=== PATIENT | male | born 1965 | race Caucasian/White ===

== ENCOUNTER 2020-12-31 08:30 | Observation (INO) | payer OTHER, SELFPAY ==
[2020-12-31] VITALS (18 sets, daily range): BP systolic 109–136; BP diastolic 59–89; PULSE 50–75; RESP 12–33; TEMP 36.4–36.8; O2SAT 95–100; BMI 22.8; BMI 22.1
--- NOTE | 2020-12-31 08:41 | DI.RAD.S_ITS ---
PROCEDURE: XR CHEST 1V INDICATIONS: chest pain TECHNIQUE: One view of the chest was acquired. COMPARISON: None. FINDINGS: Surgical changes and devices: None. Lungs and pleura: Lungs are clear. No pleural effusions or pneumothorax. Mediastinum: Mediastinal contours appear normal. Heart size is normal. Bones and chest wall: No suspicious bony lesions. Overlying soft tissues appear unremarkable. IMPRESSION: No acute cardiopulmonary abnormality Dictated by: Laurent Simpson M.D. on 12/31/2020 at 9:21 Approved by: Laurent Simpson M.D. on 12/31/2020 at 9:21
[2020-12-31 08:55] LABS: Add Manual Diff / Slide Review NO; Basophils Absolute Auto 0 /uL (0-100); Basophils Percent Auto 0.6 % (0-2); Eosinophils Absolute Auto 0 /uL (0-450); Eosinophils Percent Auto 0.3 % (2-4); Hematocrit 48.2 % (41-53); Hemoglobin 16.3 g/dL (13.5-17.5); Lymphocytes Absolute Auto 1600 /uL (1100-4500); Lymphocytes Percent Auto 21.5 % (25-40); Mean Corpuscular HGB Conc 33.9 % (30-36); Mean Corpuscular Hemoglobin 35.6 PG (26-34); Mean Corpuscular Volume 105.1 fL (80-100); Monocytes Absolute Auto 700 /uL (0-900); Monocytes Percent Auto 9.2 % (3-14); Neutrophils Absolute Auto 5100 /uL (1500-7000); Neutrophils Percent Auto 68.4 % (50-75); Platelet Count 218 X10^3/uL (150-400); Red Blood Cell Count 4.59 X10^6/uL (4.5-5.9); Red Cell Distribution Width 12.4 % (11.6-14.8); White Blood Cell Count 7.5 X10^3/uL (4.5-11.0)
--- NOTE | 2020-12-31 09:01 | ED_ITS ---
HPI - Extremity Problem General Chief complaint: Extremity Problem,Nontraumatic Stated complaint: PAIN IN RIGHT SHOULDER Time Seen by Provider: 12/31/20 08:30 Source: patient and family Mode of arrival: Ambulatory Limitations: no limitations History of Present Illness HPI Narrative: 55-year-old male smoker and frequent drinker presents with a chief complaint of right shoulder pain with radiation into his right arm for the past day and a half. He denies any injury or overuse. He cannot worsen his pain with range of motion and denies any obvious provocation. He denies any dizziness, weakness or lightheadedness but does state over the past week or 2 he has had increasing fatigue and shortness of breath with exertion. He denies recent travel, history of blood clot or history of any known cancer. He states he did have a stress test many years ago that he thinks went okay but they did mention his EKG suggested he had a prior ?event?. He states his PCP is in [facility] Medications Medication Instructions Recorded Confirmed B-complex with vitamin C 1 cap PO DAILY 12/31/20 12/31/20 citalopram 40 mg tablet 40 mg PO DAILY 12/31/20 12/31/20 valacyclovir 1 gram tablet 1,000 mg PO DAILY 12/31/20 12/31/20 Allergies Allergy/AdvReac Type Severity Reaction Status Date / Time No Known Drug Allergies Allergy Unverified 12/31/20 07:20 Review of Systems Constitutional Constitutional: Denies chills, Denies fatigue, Denies fever(s), Denies frequent falls, Denies lethargy and Denies weakness Eyes Eyes: Denies change in vision, Denies eye discharge, Denies irritation and Denies loss of vision ENT Ears, Nose, Mouth, and Throat: Denies change in voice, Denies dizziness, Denies neck pain, Denies sore throat and Denies throat swelling Cardiovascular Cardiovascular: Denies chest pain, Denies irregular heart rhythm, Denies lig htheadedness, Denies palpitations, Denies dyspnea, Denies dyspnea on exertion and Denies orthopnea Respiratory Respiratory: Denies cough, Denies dyspnea, Denies dyspnea on exertion and Denies wheezing Gastrointestinal Gastrointestinal: Denies abdominal pain, Denies change in bowel habits, Denies diarrhea, Denies nausea and Denies vomiting Musculoskeletal Musculoskeletal: Denies neck pain, Denies numbness and Reports radiating pain into limb Comments: Shoulder pain Integumentary/Breasts Skin/Breast: Denies pruritus, Denies erythema, Denies rash and Denies wounds Neurologic Neurologic: Denies behavioral changes, Denies confusion, Denies dizziness, Denies frequent falls, Denies loss of vision, Denies numbness and Denies weakness Psychiatric Psychiatric: Denies anxiety, Denies behavioral changes, Denies confusion, Denies depression, Denies homicidal ideation and Denies suicidal ideation Endocrine Endocrine: Denies fatigue, Denies flushing and Denies palpitations Hematologic/Lymphatic Hematologic/Lymphatic: Denies easy bruising Allergic/Immunologic Allergic/Immunologic: Denies urticaria, Denies throat swelling and Denies wheezing Patient History Medical History Alcohol use Anxiety Tobacco use Social History Smoking Status: Current every day smoker alcohol intake: current Smoking Status: Current every day smoker Exam Narrative Exam Narrative: GENERAL: [55] year old patient appears stated age. Well-nourished, well-developed patient, in mild distress. HEAD: Atraumatic. Normocephalic. EYES: Pupils equal round and reactive. Extraocular motions intact. No scleral icterus. No injection or drainage. ENT: Nose without bleeding, purulent drainage. Throat without erythema, tonsillar hypertrophy or exudate. Airway patent. NECK: Trachea midline. Non tender. No increased shoulder and arm symptoms with axial loading or palpation of right side of neck CARDIOVASCULAR: Regular rate and rhythm without murmurs, gallops, or rubs. RESPIRATORY: Clear to auscultation. Breath sounds equal bilaterally. No wheezes, rales, or rhonchi. GASTROINTESTINAL: Abdomen soft, non-tender, nondistended. EXTREMITIES: No edema or joint tenderness. Shoulder pain not reproducible BACK: Nontender without deformity or crepitance. No flank tenderness. NEURO: AOx3. SKIN: No rash or erythema of visible areas Initial Vital Signs Initial Vital Signs: Vital Signs Temperature 97.5 F L 12/31/20 08:38 Pulse Rate 74 12/31/20 08:38 Respiratory Rate 16 12/31/20 08:38 Blood Pressure 136/86 12/31/20 08:38 Pulse Oximetry 97 12/31/20 08:38 Scores HEART Score Heart Score history: Moderately Suspicious Heart Score EKG: Non-Specific repolarization disturbance Heart Score Age: 45-64 years old Heart Score risk factors: 1-2 risk factors Heart Score troponin: < or = to normal limit Heart Score Total: 4 Course Orders Ordered: ED Orders 12/31/20 09:13 EKG-12 Lead Stat 12/31/20 10:38 Troponin I Stat 12/31/20 12:09 COVID19 Stat 12/31/20 16:44 Troponin I Urgent Acetaminophen (Acetaminophen 325 Mg Tablet) 650 mg PO Q6HR PRN PRN Reason: Fever/Mild Pain (1-3) Citalopram Hydrobromide (Citalopram 10 Mg Tablet) 40 mg PO DAILY BILLY Diazepam (Diazepam 10 Mg/2 Ml Syringe) 5 mg IV Q6HR PRN PRN Reason: Muscle Spasm Last Admin: 12/31/20 17:30 Dose: 5 mg Documented by: BRIAN Folic Acid (Folic Acid 1 Mg Tablet) 1 mg PO DAILY [facility] Hydromorphone HCl (Hydromorphone 0.5 Mg Inj) 0.5 mg IV Q3H PRN PRN Reason: Pain, Moderate (4-6) Last Admin: 12/31/20 16:00 Dose: 0.5 mg Documented by: BRIAN Ketorolac Tromethamine (Ketorolac 30 Mg/Ml Vial) 15 mg IV Q8H PRN PRN Reason: pain Stop: 01/05/21 15:26 Last Admin: 12/31/20 18:03 Dose: 15 mg Documented by: BRIAN Lorazepam (Lorazepam 1 Mg Tablet) 0 mg PO [id number] PRN; Protocol PRN Reason: Alcohol Withdrawal Multivitamins (Multivitamin 1 Tablet) 1 tab PO DAILY [facility] Naloxone HCl (Naloxone 0.4 Mg/Ml Vial) 0.2 mg IV Q2MIN PRN PRN Reason: Opiate Reversal Nitroglycerin (Nitroglycerin 0.4 Mg Sl Tab) 0.4 mg SL [id number] PRN PRN Reason: Chest Pain Last Admin: 12/31/20 11:21 Dose: 0.4 mg Documented by: LACI Thiamine HCl (Thiamine 100 Mg Tablet) 100 mg PO DAILY BILLY Stop: 01/04/21 09:01 Valacyclovir HCl (Valacyclovir 500 Mg Tablet) 1,000 mg PO DAILY BILLY Discontinued Medications Aspirin (Aspirin 81 Mg Chew Tab) 324 mg PO NOW ONE Stop: 12/31/20 11:59 Last Admin: 12/31/20 12:04 Dose: 324 mg Documented by: KIRA Ketorolac Tromethamine (Ketorolac 60 Mg/2 Ml Vial) 15 mg IV NOW ONE Stop: 12/31/20 09:14 Last Admin: 12/31/20 09:32 Dose: 15 mg Documented by: LACI Consultations Consultation #1: Discussed with on-call Cardiology, given patient's risk factors, exertional fatigue and shortness of breath over the past 2 weeks, heart score of 4, they recommend admission with stress testing and ECHO. Consultation #2: Hospitalist happy to accept Vital Signs Vital signs: Vital Signs - 8 hr 12/31/20 10:35 12/31/20 10:37 12/31/20 11:00 Pulse Rate 56 L 56 L Respiratory Rate 12 14 20 Blood Pressure 134/86 Pulse Oximetry 99 100 95 12/31/20 11:21 12/31/20 11:26 12/31/20 11:30 Pulse Rate 66 58 L Respiratory Rate 24 18 Blood Pressure 134/74 128/59 L Pulse Oximetry 95 95 12/31/20 12:00 12/31/20 12:06 Pulse Rate 55 L 68 Respiratory Rate 33 H 26 H Blood Pressure 118/74 Pulse Oximetry 98 99 MDM - Extremity (Nontraumatic) Lab Data Result diagrams: 12/31/20 08:42 12/31/20 08:42 Labs: Lab Results 12/31/20 12/31/20 12/31/20 Range/Units 08:42 08:42 08:42 WBC 7.5 (4.5-11.0) X10^3/uL RBC 4.59 (4.5-5.9) X10^6/uL Hgb 16.3 (13.5-17.5) g/dL Hct 48.2 (41-53) % MCV 105.1 H (80-100) fL MCH 35.6 H (26-34) PG MCHC 33.9 (30-36) % RDW 12.4 (11.6-14.8) % Plt Count 218 (150-400) X10^3/uL Neut % (Auto) 68.4 (50-75) % Lymph % (Auto) 21.5 L (25-40) % Lasalle % (Auto) 9.2 (3-14) % Eos % (Auto) 0.3 L (2-4) % Baso % (Auto) 0.6 (0-2) % Neut # (Auto) 5100 (2371-9935) /uL Lymph # (Auto) 1600 (0204-4217) /uL Lasalle # (Auto) 700 (0-900) /uL Eos # (Auto) 0 (0-450) /uL Baso # (Auto) 0 (0-100) /uL ESR (0-15) MM/HR PT 11.5 (10.1-12.7) SECONDS INR 1.0 (0.9-1.3) APTT 37 H (26.4-36.2) SECONDS Sodium 135 L (137-145) mmol/L Potassium 4.2 (3.4-5.1) mmol/L Chloride 102 (98-107) mmol/L Carbon Dioxide 28 (22-32) mmol/L BUN 11 (9-20) mg/dL Creatinine 0.58 L (0.66-1.25) mg/dL Estimated GFR > 60.0 (>60) mL/min BUN/Creatinine Ratio 19.0 (6-22) Glucose 126 H (70-100) mg/dL Calcium 9.2 (8.4-10.2) mg/dL Total Bilirubin 0.6 (0.2-1.3) mg/dL AST 26 (17-59) IU/L ALT 14 (<50) IU/L Alkaline Phosphatase 61 (38-126) U/L Total Creatine Kinase 81 (55-170) U/L CK-MB (CK-2) TNP CK-MB (CK-2) Rel Index TNP Troponin I < 0.012 (0.01-0.034) ng/mL C-Reactive Protein (<1.0) mg/dL Total Protein 7.5 (6.3-8.2) g/dL Albumin 4.7 (3.5-5.0) g/dL Globulin 2.8 (1.7-4.1) g/dL Albumin/Globulin Ratio 1.7 (1.0-2.8) Lipase 68 (23-300) U/L SARS-CoV-2 (PCR) (Negative) 12/31/20 12/31/20 12/31/20 Range/Units 08:42 08:42 10:38 WBC (4.5-11.0) X10^3/uL RBC (4.5-5.9) X10^6/uL Hgb (13.5-17.5) g/dL Hct (41-53) % MCV (80-100) fL MCH (26-34) PG MCHC (30-36) % RDW (11.6-14.8) % Plt Count (150-400) X10^3/uL Neut % (Auto) (50-75) % Lymph % (Auto) (25-40) % Lasalle % (Auto) (3-14) % Eos % (Auto) (2-4) % Baso % (Auto) (0-2) % Neut # (Auto) (1067-8315) /uL Lymph # (Auto) (7794-6957) /uL Lasalle # (Auto) (0-900) /uL Eos # (Auto) (0-450) /uL Baso # (Auto) (0-100) /uL ESR 1 (0-15) MM/HR PT (10.1-12.7) SECONDS INR (0.9-1.3) APTT (26.4-36.2) SECONDS Sodium (137-145) mmol/L Potassium (3.4-5.1) mmol/L Chloride (98-107) mmol/L Carbon Dioxide (22-32) mmol/L BUN (9-20) mg/dL Creatinine (0.66-1.25) mg/dL Estimated GFR (>60) mL/min BUN/Creatinine Ratio (6-22) Glucose (70-100) mg/dL Calcium (8.4-10.2) mg/dL Total Bilirubin (0.2-1.3) mg/dL AST (17-59) IU/L ALT (<50) IU/L Alkaline Phosphatase (38-126) U/L Total Creatine Kinase (55-170) U/L CK-MB (CK-2) CK-MB (CK-2) Rel Index Troponin I < 0.012 (0.01-0.034) ng/mL C-Reactive Protein < 0.5 (<1.0) mg/dL Total Protein (6.3-8.2) g/dL Albumin (3.5-5.0) g/dL Globulin (1.7-4.1) g/dL Albumin/Globulin Ratio (1.0-2.8) Lipase (23-300) U/L SARS-CoV-2 (PCR) (Negative) 12/31/20 Range/Units 12:09 WBC (4.5-11.0) X10^3/uL RBC (4.5-5.9) X10^6/uL Hgb (13.5-17.5) g/dL Hct (41-53) % MCV (80-100) fL MCH (26-34) PG MCHC (30-36) % RDW (11.6-14.8) % Plt Count (150-400) X10^3/uL Neut % (Auto) (50-75) % Lymph % (Auto) (25-40) % Lasalle % (Auto) (3-14) % Eos % (Auto) (2-4) % Baso % (Auto) (0-2) % Neut # (Auto) (4488-3882) /uL Lymph # (Auto) (7687-3463) /uL Lasalle # (Auto) (0-900) /uL Eos # (Auto) (0-450) /uL Baso # (Auto) (0-100) /uL ESR (0-15) MM/HR PT (10.1-12.7) SECONDS INR (0.9-1.3) APTT (26.4-36.2) SECONDS Sodium (137-145) mmol/L Potassium (3.4-5.1) mmol/L Chloride (98-107) mmol/L Carbon Dioxide (22-32) mmol/L BUN (9-20) mg/dL Creatinine (0.66-1.25) mg/dL Estimated GFR (>60) mL/min BUN/Creatinine Ratio (6-22) Glucose (70-100) mg/dL Calcium (8.4-10.2) mg/dL Total Bilirubin (0.2-1.3) mg/dL AST (17-59) IU/L ALT (<50) IU/L Alkaline Phosphatase (38-126) U/L Total Creatine Kinase (55-170) U/L CK-MB (CK-2) CK-MB (CK-2) Rel Index Troponin I (0.01-0.034) ng/mL C-Reactive Protein (<1.0) mg/dL Total Protein (6.3-8.2) g/dL Albumin (3.5-5.0) g/dL Globulin (1.7-4.1) g/dL Albumin/Globulin Ratio (1.0-2.8) Lipase (23-300) U/L SARS-CoV-2 (PCR) Negative (Negative) MDM Narrative Medical decision making narrative: Multiple etiologies including orthopedic or musculoskeletal considered but thought unlikely given lack of reproducibility, overuse or injury. Referred pain from abdominal source considered but thought unlikely given lack of reproducible abdominal pain, nausea, vomiting or other lab abnormalities. Cervical radiculopathy considered but thought unlikely given lack of reproducibility, change with axial loading. Cardiac etiology considered and will need to be ruled out despite negative troponin and nonischemic EKG. Discharge Plan Departure Patient Disposition: Admitted as Observation Clinical Impression: Chest pain Qualifiers: Chest pain type: unspecified Qualified Code(s): R07.9 - Chest pain, unspecified Admit Date/Time: 12/31/20 12:18 Admit Provider: Gordon Owen
[2020-12-31 09:02] LABS: Prothrombin Time 11.5 SECONDS (10.1-12.7)
[2020-12-31 09:05] LABS: PTT Partial Thromboplastin Tim 37 SECONDS (26.4-36.2)
[2020-12-31 09:06] LABS: Alanine Aminotransferase 14 IU/L (<50); Albumin 4.7 g/dL (3.5-5.0); Albumin Globulin Ratio 1.7 (1.0-2.8); Alkaline Phosphatase 61 U/L (38-126); Aspartate Aminotransferase 26 IU/L (17-59); Bilirubin Total 0.6 mg/dL (0.2-1.3); Blood Urea Nitrogen 11 mg/dL (9-20); Calcium 9.2 mg/dL (8.4-10.2); Carbon Dioxide 28 mmol/L (22-32); Chloride 102 mmol/L (98-107); Creatine Kinase 81 U/L (55-170); Estimated Glomerular Filt Rate > 60.0 mL/min (>60); Globulin 2.8 g/dL (1.7-4.1); Glucose 126 mg/dL (70-100); HEMOLYSIS 20 (0-50); Lipase 68 U/L (23-300); Potassium 4.2 mmol/L (3.4-5.1); Sodium 135 mmol/L (137-145); Total Protein 7.5 g/dL (6.3-8.2)
[2020-12-31 09:18] LABS: Troponin I < 0.012 ng/mL (0.01-0.034)
[2020-12-31] MEDS: KETOROLAC 60 MG/2 ML VIAL 15 MG IV (09:32)
[2020-12-31 09:36] LABS: Erythrocyte Sedimentation Rate 1 MM/HR (0-15)
[2020-12-31 09:38] LABS: C-Reactive Protein Quant < 0.5 mg/dL (<1.0)
[2020-12-31 11:06] LABS: Troponin I < 0.012 ng/mL (0.01-0.034)
[2020-12-31] MEDS: NITROGLYCERIN 0.4 MG SL TAB SL (11:21)
[2020-12-31] MEDS: ASPIRIN 81 MG CHEW TAB 324 MG PO (12:04)
[2020-12-31 12:32] LABS: COVID19 -Nasal RAPID Negative (Negative)
--- NOTE | 2020-12-31 14:51 | DI.ECHO.S_ITS ---
[facility]---------+ [facility] +---------+ : : [address] : : : : [id number] : : : : Phone: [phone]---------+ Echocardiogram Report + + :Name: DEIDRE RODRIGUEZ Study Date: 01/01/2021 Height: 68 in : :[facility] ReadingLocation: Weight: 145 lb : : Gender: Male BSA: 1.8 m2 : :: 1965 Age: 55 yrs BP: 114/78 mmHg: :Reason For Study: CARDIAC PAIN : :Ordering Physician: SANJAY, : :RAAD GOTTI Performed By: Ju Armando : :Referring: RAAD GRACE : + + Interpretation Summary Sinus bradycardia; heart rate is 45-68 bpm. Normal LV size, wall thickness, wall motion and LV systolic function. EF is 60-65%. Mild LA enlargement; otherwise normal chamber sizes. No significant valvular abnormalities. No prior study available for comparison. Procedure: A two-dimensional transthoracic echocardiogram with color flow and Doppler was performed. The study quality was technically adequate. There is no prior echocardiogram noted for this patient. The patient was in sinus bradycardia with heart rates between 45-68 bpm during the exam. Left Ventricle: The left ventricle is normal in size and wall thickness. The ejection fraction is estimated to be 60-65%. Right Ventricle: The right ventricle is normal in size and function. Atria: The left atrium is mildly dilated. Right atrial size is normal. There is no Doppler evidence for an interatrial shunt. Mitral Valve: The mitral valve is normal in structure and function. There is mild mitral annular calcification. There is trace mitral regurgitation. Aortic Valve: The aortic valve is trileaflet. The aortic valve opens well. There is no aortic valve stenosis. No aortic regurgitation is present. Tricuspid Valve: The tricuspid valve is normal in structure and function. There is trace tricuspid regurgitation. Pulmonary artery pressures cannot be estimated because of the lack of a measurable TR jet velocity but the IVC suggests a CVP of around 3 mmHg. Pulmonic Valve: The pulmonic valve leaflets are thin and pliable; valve motion is normal. There is no pulmonic valvular regurgitation. Great Vessels: The aortic root is normal size. The ascending aorta is normal in size. The IVC is of normal diameter and collapses greater than 50% with a sniff. This suggests a low right atrial pressure of 3 mm Hg. Pericardium/ Pleura There is no pericardial effusion. There is no pleural effusion. MMode/2D Measurements & Calculations LVIDd: 5.3 cm LVOT diam: 2.1 cm LVIDs: 3.5 cm Ao root diam: 3.5 cm FS: 33.4 % asc Aorta Diam: 3.4 cm EPSS: 0.45 cm Ao Arch Diam (Prox Trans): 2.7 cm IVSd: 0.81 cm LVPWd: 0.72 cm LV tamayo. diameter/BSA (cm/m^2): 3.0 LV sys. diameter/BSA (cm/m^2): 2.0 LA A2 area: 21.1 cm2 RA long axis: 4.7 cm LA A4 area: 17.1 cm2 RA area: 13.6 cm2 LA length (vol): 4.6 cm RA vol: 33.6 ml LA vol: 67.0 ml RA : 18.8 ml/m2 LA vol index: 37.6 ml/m2 IVC diam: 1.6 cm RVD1 (basal): 2.5 cm TAPSE: 2.6 cm Doppler Measurements & Calculations Ao V2 max: 118.9 cm/sec LVOT Max Tucker: 62.2 cm/sec Ao V2 mean: 78.0 cm/sec LV V1 max P.5 mmHg Ao max P.7 mmHg LV V1 VTI: 14.9 cm Ao mean P.8 mmHg CLAUDY(I,D): 2.3 cm2 Ao V2 VTI: 21.4 cm CLAUDY(V,D): 1.7 cm2 sev ratio: 0.70 CLAUDY indexed to BSA (cm^2/m^2): 1.3 MV E max utcker: 92.9 cm/sec PA V2 max: 70.3 cm/sec MV A max tucker: 75.0 cm/sec PA V2 mean: 47.6 cm/sec MV E/A: 1.2 PA mean P.0 mmHg Med Peak E' Tucker: 7.3 cm/sec PA pr(Accel): 25.9 mmHg E/E' med: 12.7 Lat Peak E' Tucker: 10.3 cm/sec E/E' lat: 9.0 E/e' average: 10.9 MV dec time: 0.18 sec SV(LVOT): 49.4 ml Electronically signed by: Kaitlyn Cole M.D. on Reading Physician:01/01/2021 03:28 PM
--- NOTE | 2020-12-31 15:51 | DI.US.S_ITS ---
PROCEDURE: US ABDOMEN LIMITED INDICATIONS: RIGHT SHOULDER PAIN ?REFERRED. RUQ EXAM. TECHNIQUE: Real-time scanning was performed of the abdominal and retroperitoneal organs, with image documentation. COMPARISON: None. FINDINGS: Liver: Liver is normal in size and homogeneous in echotexture. Gallbladder: Gallbladder demonstrates no visualized stones. Wall thickness is within normal limits measuring 1.7 mm. Biliary ducts: Intrahepatic bile ducts are non-dilated. Extrahepatic bile duct caliber measures 3.9 mm. Normal is 6-7 mm or less in diameter, or 10 mm or less post-cholecystectomy. Pancreas: Visualized portions of the pancreas are sonographically normal. Miscellaneous: No free abdominal fluid. IMPRESSION: Gallbladder is unremarkable. Dictated by: Brielle Solis M.D. on 12/31/2020 at 17:35 Approved by: Brielle Solis M.D. on 12/31/2020 at 17:36
--- NOTE | 2020-12-31 15:54 | P.HP_ITS ---
History of Present Illness History of Present Illness Date Patient Seen: 12/31/20 Time Patient Seen: 15:54 Chief complaint: PAIN IN RIGHT SHOULDER Narrative: Vimal Urena is a 55 year old male with a past medical history of anxiety, current smoker who initially presented to the walk-in clinic for right shoulder pain that started 2 days ago. Patient states that he woke up after a nap with severe right shoulder pain. The pain is located just under his scapula inferiorly. He initially tried massage, but this did not help, and he later tried a Vicodin which did help but lasted for only a few hours before the pain returned. At some point overnight, he started developing some tingling in his distal fingertips only. When the pain is severe he also felt slightly nauseous. He also feels as though the pain radiates from his scapula to his neck and right upper arm. He denies any chest pain, shortness of breath, abdominal pain, palpitations, dyspnea on exertion. He denies any recent fever, chills, cough. Patient has been living in [place] taking care of his elderly parents, has been in [place] with his (lives here) for about a week. He smokes between 1/2- 1 ppd and uses marijuana daily. Also has about 4 beers per day. Does get occasional sweats when he doesn't drink, no prior admissions for EtOH withdrawal or intubations. In the emergency room, the patient's vital signs were unremarkable. Initial laboratory evaluation revealed a macrocytosis with an MCV of 105 but a normal hemoglobin. Coagulation studies were unremarkable. Chemistries were also unremarkable. Troponin was negative x2. CRP was negative. COVID-19 testing was negative. Lipase was within normal limits at 68. Chest x-ray was unremarkable. EKG showed nonspecific ST segment changes in lead III in one EKG. ER provider discussed with cardiology whom recommended stress testing, HEART score between 3 and 4 depending on interpretation of his clinical history. Gabrielle ent was admitted for further evaluation of R shoulder pain. Patient History Medical History Alcohol use Anxiety Tobacco use Family & Social History Social History: Prior Living Arrangements House Safety & Behavioral: Feels Safe in Current Yes Environment Been Physically Hurt or No Threatened By a Person Suicidal Ideation Description None Suicide Plan Description No Plan Tobacco & Substance use: Tobacco type cigarettes Smoking Status Current every day smoker Smoking packs per day 0.5 alcohol intake current alcohol intake frequency 3 or more drinks per day Substance Use Type does not use Meds Home Medications and Allergies Home Medications Medication Instructions Recorded Confirmed Type B-complex with vitamin C 1 cap PO DAILY 12/31/20 12/31/20 History citalopram 40 mg tablet 40 mg PO DAILY 12/31/20 12/31/20 History valacyclovir 1 gram tablet 1,000 mg PO DAILY 12/31/20 12/31/20 History Allergies Allergy/AdvReac Type Severity Reaction Status Date / Time No Known Drug Allergies Allergy Unverified 12/31/20 07:20 Review of Systems Review of Systems Narrative: All other systems reviewed with the patient and are negative unless otherwise stated. Exam Vital Signs (past 8 hours): - 12/31/20 08:38 12/31/20 09:01 12/31/20 09:30 Temperature 97.5 F L Pulse Rate 74 73 64 Respiratory Rate 16 20 Blood Pressure 136/86 135/89 Pulse Oximetry 97 98 97 12/31/20 10:00 12/31/20 10:35 12/31/20 10:37 Temperature Pulse Rate 56 L Respiratory Rate 12 14 Blood Pressure 123/83 134/86 Pulse Oximetry 98 99 100 12/31/20 11:00 12/31/20 11:21 12/31/20 11:26 Temperature Pulse Rate 56 L 66 Respiratory Rate 20 24 Blood Pressure 134/74 128/59 L Pulse Oximetry 95 95 12/31/20 11:30 12/31/20 12:00 12/31/20 12:06 Temperature Pulse Rate 58 L 55 L 68 Respiratory Rate 18 33 H 26 H Blood Pressure 118/74 Pulse Oximetry 95 98 99 12/31/20 12:30 12/31/20 13:00 12/31/20 13:51 Temperature 97.7 F Pulse Rate 64 62 75 Respiratory Rate 18 22 18 Blood Pressure 109/74 121/82 132/89 Pulse Oximetry 100 99 96 Oxygen Delivery Method Room Air Narrative Exam Narrative: GENERAL APPEARANCE: Well developed, well nourished, male, anxious and pacing in the room. SKIN: Inspection of the skin reveals no rashes, ulcerations or petechiae. HEENT: Normocephalic atraumatic, extraocular muscles are intact, oropharynx is clear and mucous membranes are moist, neck is supple without adenopathy NECK: Supple and symmetric. There was no thyroid enlargement, and no tenderness, or masses were felt. CHEST: Normal AP diameter and normal contour without any kyphoscoliosis. LUNGS: Auscultation of the lungs revealed no wheezes, rhonchi, or rales. CARDIOVASCULAR: There was a regular rate and rhythm without any murmurs, gallops, rubs. Peripheral pulses were 2+ and symmetric. ABDOMEN: Soft and nontender with normal bowel sounds. No ascites was noted. MUSCULOSKELETAL: R shoulder tenderness, reproduction of radiation with spurling's test. + cervical paraspinal tightness and tenderness. EXTREMITIES: No cyanosis, clubbing or edema. NEUROLOGIC: Alert and oriented x 3. Normal affect. Gait was normal. Strength is +5/5 in the Upper Extremities and Lower Extremities Bilaterally. Sensation to touch was normal. Psych: anxious appearing and pacing but calm, cooperative Objective ECG Impression: Normal sinus rhythm ST elevation in inferior leads, borderline. Borderline ECG Electronically Signed On 12-31-2020 12:09:39 PST by Gordon Ram Chest x-ray: Radiologist's impression: PROCEDURE: XR CHEST 1V INDICATIONS: chest pain TECHNIQUE: One view of the chest was acquired. COMPARISON: None. FINDINGS: Surgical changes and devices: None. Lungs and pleura: Lungs are clear. No pleural effusions or pneumothorax. Mediastinum: Mediastinal contours appear normal. Heart size is normal. Bones and chest wall: No suspicious bony lesions. Overlying soft tissues appear unremarkable. IMPRESSION: No acute cardiopulmonary abnormality Labs Result Diagrams: 12/31/20 08:42 12/31/20 08:42 Labs: Laboratory Results - last 24 hr 12/31/20 12/31/20 12/31/20 08:42 08:42 08:42 WBC 7.5 RBC 4.59 Hgb 16.3 Hct 48.2 MCV 105.1 H MCH 35.6 H MCHC 33.9 RDW 12.4 Plt Count 218 Neut % (Auto) 68.4 Lymph % (Auto) 21.5 L [place] % (Auto) 9.2 Eos % (Auto) 0.3 L Baso % (Auto) 0.6 Neut # (Auto) 5100 Lymph # (Auto) 1600 [place] # (Auto) 700 Eos # (Auto) 0 Baso # (Auto) 0 ESR PT 11.5 INR 1.0 APTT 37 H Sodium 135 L Potassium 4.2 Chloride 102 Carbon Dioxide 28 BUN 11 Creatinine 0.58 L Estimated GFR > 60.0 BUN/Creatinine Ratio 19.0 Glucose 126 H Calcium 9.2 Total Bilirubin 0.6 AST 26 ALT 14 Alkaline Phosphatase 61 Total Creatine Kinase 81 CK-MB (CK-2) TNP CK-MB (CK-2) Rel Index TNP Troponin I < 0.012 C-Reactive Protein Total Protein 7.5 Albumin 4.7 Globulin 2.8 Albumin/Globulin Ratio 1.7 Lipase 68 SARS-CoV-2 (PCR) 12/31/20 12/31/20 12/31/20 08:42 08:42 10:38 WBC RBC Hgb Hct MCV MCH MCHC RDW Plt Count Neut % (Auto) Lymph % (Auto) [place] % (Auto) Eos % (Auto) Baso % (Auto) Neut # (Auto) Lymph # (Auto) [place] # (Auto) Eos # (Auto) Baso # (Auto) ESR 1 PT INR APTT Sodium Potassium Chloride Carbon Dioxide BUN Creatinine Estimated GFR BUN/Creatinine Ratio Glucose Calcium Total Bilirubin AST ALT Alkaline Phosphatase Total Creatine Kinase CK-MB (CK-2) CK-MB (CK-2) Rel Index Troponin I < 0.012 C-Reactive Protein < 0.5 Total Protein Albumin Globulin Albumin/Globulin Ratio Lipase SARS-CoV-2 (PCR) 12/31/20 12:09 WBC RBC Hgb Hct MCV MCH MCHC RDW Plt Count Neut % (Auto) Lymph % (Auto) [place] % (Auto) Eos % (Auto) Baso % (Auto) Neut # (Auto) Lymph # (Auto) [place] # (Auto) Eos # (Auto) Baso # (Auto) ESR PT INR APTT Sodium Potassium Chloride Carbon Dioxide BUN Creatinine Estimated GFR BUN/Creatinine Ratio Glucose Calcium Total Bilirubin AST ALT Alkaline Phosphatase Total Creatine Kinase CK-MB (CK-2) CK-MB (CK-2) Rel Index Troponin I C-Reactive Protein Total Protein Albumin Globulin Albumin/Globulin Ratio Lipase SARS-CoV-2 (PCR) Negative Assessment & Plan Assessment & Plan narrative: Vimal Urena is a 55 year old male with a past medical history of anxiety, current smoker who initially presented to the walk- in clinic for right shoulder pain that started 2 days ago and is admitted for further evaluation. 1. R shoulder pain, acute, present on admission - differential is broad but includes referred pain from hepatobiliary source, cardiac source. Also given + spurlings includes cervical radiculopathy and more likely muscle spasm given exam. Less likely PE given no symptoms of shortness of breath, no evidence in history or physical exam and labs/imaging of pneumonia. Suspect musculoskeletal cause at this time. - Some ST segment changes in inferior leads without troponin elevation or chest pain. HEART score is 3-4, ER provider discussed with cardiology whom recommended stress testing. - will check RUQ ultrasound to rule out referred pain from abdominal source. XR of cervical spine for evidence of possible radicular source given + spurlings, although this can also be positive with muscle spasm. - pain control with toradol, valium for muscle spasm, and dilaudid for only severe pain. - will check 3rd troponin, currently negative x2. - risk stratification labs A1c, TSH, lipid panel. 2. anxiety, chronic - continue home citalopram. 3. alcohol use, chronic, present on admission - patient with 4 beers daily, admits to sweats when he doesn't drink. - CIWA protocol ordered, ativan prn 4. tobacco use, chronic - patient counseled on cessation, does not wish for nicotine patch at this time. Code: Full, surrogate decision maker is his Dispo: admit under observation DVT: patient ambulatory, low risk. Quality VTE Deep Vein Thrombosis/Pulmonary Embolism Present on Admission: No
[2020-12-31] MEDS: HYDROMORPHONE 0.5 MG INJ IV ×3 (16:00→22:11)
--- NOTE | 2020-12-31 16:13 | DI.RAD.S_ITS ---
PROCEDURE: XR CERVICAL SPINE 2V OR 3V INDICATIONS: Right neck pain, radiating to finger, + spurling test TECHNIQUE: 3 view(s) of the cervical spine were acquired. COMPARISON: None. FINDINGS: Bones: No fractures or dislocations to the C7 level. The lateral masses of C1 appear intact on the odontoid view. No suspicious bony lesions. There is loss of normal cervical lordosis. Degenerative disc disease is present, moderate at C4-C5, mild at C3-C4 and C5-C6. Scattered bilateral facet arthropathy, most pronounced at C2-C3 on the left and C5-C6 and C6-C7 bilaterally. Soft tissues: No prevertebral soft tissue swelling. IMPRESSION: 1. Degenerative disc and facet disease in cervical spine. If clinical symptoms persist and there is clinical suspicion for nerve root impingement, MRI is suggested for further evaluation. 2. Loss of normal cervical lordosis. Dictated by: Quiana Crawley M.D. on 12/31/2020 at 16:43 Approved by: Quiana Crawley M.D. on 12/31/2020 at 16:52
[2020-12-31 17:00] LABS: Hemoglobin A1C% w Est Avg Glu 5.1 % (4.0-6.0)
[2020-12-31 17:10] LABS: Cholesterol 239 mg/dL (140-199); HDL Cholesterol 98 mg/dL (40-60); LDL Cholesterol Calculated 124 mg/dL (<100); Triglycerides 84 mg/dL (35-150)
[2020-12-31 17:16] LABS: Troponin I < 0.012 ng/mL (0.01-0.034)
[2020-12-31] MEDS: diazePAM 10 MG/2 ML SYRINGE 5 MG IV (17:30)
[2020-12-31 17:42] LABS: TSH w/ Reflex to FT4 6.03 uIU/mL (0.47-4.68)
[2020-12-31] MEDS: KETOROLAC 30 MG/ML VIAL 15 MG IV (18:03)
[2020-12-31 18:40] LABS: Free T4, Direct Thyroxine 1.32 ng/dL (0.78-2.19)
--- NOTE | 2020-12-31 19:37 | PC.NURSE ---
Patient has been resting in bed part of the shift. His right shoulder still bothering him, which causes him to feel restless and need to ambulate in his room. IVP dilaudid, toradol and valium given but only effective for about an hour for each pain has been 4-06/03. Notified about discomfort, no new orders at this time. Patient has denied any chest pain or sob. Gait has been steady while patient has been up independently in the room. Patient has been A&O, calm and cooperative.
[2020-12-31] MEDS: MELATONIN 3 MG TABLET 6 MG PO (22:11)
[2021-01-01] MEDS: HYDROMORPHONE 0.5 MG INJ IV ×4 (00:55→12:54)
[2021-01-01] MEDS: SODIUM CHLORIDE 0.9% FLUSH 10 ML IV ×2 (00:55→08:55)
[2021-01-01] MEDS: KETOROLAC 30 MG/ML VIAL 15 MG IV (03:25)
[2021-01-01 03:34] VITALS: BP 124/60; PULSE 58; RESP 16; TEMP 36.3; O2SAT 100
[2021-01-01 04:42] LABS: Add Manual Diff / Slide Review NO; Basophils Absolute Auto 0 /uL (0-100); Basophils Percent Auto 0.4 % (0-2); Eosinophils Absolute Auto 100 /uL (0-450); Eosinophils Percent Auto 1.1 % (2-4); Hematocrit 47.1 % (41-53); Hemoglobin 15.7 g/dL (13.5-17.5); Lymphocytes Absolute Auto 1700 /uL (1100-4500); Lymphocytes Percent Auto 28.8 % (25-40); Mean Corpuscular HGB Conc 33.4 % (30-36); Mean Corpuscular Hemoglobin 34.9 PG (26-34); Mean Corpuscular Volume 104.6 fL (80-100); Monocytes Absolute Auto 700 /uL (0-900); Monocytes Percent Auto 10.8 % (3-14); Neutrophils Absolute Auto 3600 /uL (1500-7000); Neutrophils Percent Auto 58.9 % (50-75); Platelet Count 207 X10^3/uL (150-400); Red Cell Distribution Width 12.2 % (11.6-14.8)
[2021-01-01 04:54] LABS: Alanine Aminotransferase 13 IU/L (<50); Albumin 4.1 g/dL (3.5-5.0); Albumin Globulin Ratio 1.6 (1.0-2.8); Alkaline Phosphatase 46 U/L (38-126); Aspartate Aminotransferase 24 IU/L (17-59); Bilirubin Total 0.6 mg/dL (0.2-1.3); Bilirubin Unconjugated 0.7 mg/dL (0.0-1.1); Blood Urea Nitrogen 12 mg/dL (9-20); Calcium 9.1 mg/dL (8.4-10.2); Carbon Dioxide 31 mmol/L (22-32); Chloride 102 mmol/L (98-107); Estimated Glomerular Filt Rate > 60.0 mL/min (>60); Globulin 2.6 g/dL (1.7-4.1); Glucose 105 mg/dL (70-100); HEMOLYSIS < 15 (0-50); Magnesium 2.1 mg/dL (1.6-2.3); Potassium 4.4 mmol/L (3.4-5.1); Sodium 135 mmol/L (137-145); Total Protein 6.7 g/dL (6.3-8.2)
[2021-01-01 07:50] VITALS: BP 127/76; PULSE 52; RESP 15; TEMP 36.6; O2SAT 99
[2021-01-01] MEDS: CITALOPRAM 10 MG TABLET 40 MG PO (08:37)
[2021-01-01] MEDS: MULTIVITAMIN 1 TABLET 1 TAB PO (08:37)
[2021-01-01] MEDS: FOLIC ACID 1 MG TABLET PO (08:37)
[2021-01-01] MEDS: THIAMINE 100 MG TABLET PO (08:37)
[2021-01-01] MEDS: valACYclovir 500 MG TABLET 1000 MG PO (08:54)
[2021-01-01] MEDS: diazePAM 10 MG/2 ML SYRINGE 5 MG IV (09:59)
--- NOTE | 2021-01-01 11:05 | DI.MRI.S_ITS ---
PROCEDURE: MR CERVICAL SPINE WO CON INDICATIONS: r.o cervical spine impingement TECHNIQUE: Noncontrast sagittal T1 spin echo and T2 fast spin echo, sagittal STIR, foraminal oblique sagittal T2 fast spin echo, and axial gradient echo or T2 fast spin echo through the cervical spine. COMPARISON: [facility], CR, XR CERVICAL SPINE 2V OR 3V, 12/31/2020, 16:15. FINDINGS: Image quality: There are motion artifacts. Alignment and Curvature: There is normal bony alignment. Bone Marrow: Marrow demonstrates normal overall signal. Spinal Cord: Visualized spinal cord has normal size and signal. No cerebellar tonsillar herniation. Paraspinous Soft Tissues: No paravertebral masses. Prevertebral soft tissues are normal in thickness. C2-C3: Preserved disc height. Mild disc desiccation. There is minimal posterior disc bulge. Uncovertebral hypertrophy bilaterally. Moderate left and mild right facet arthropathy. No significant central canal stenosis. Moderate left foraminal stenosis. The right neural foramen is patent. C3-C4: Mild loss of disc height and moderate disc desiccation. There is diffuse posterior disc bulge and uncovertebral hypertrophy. Moderate left and mild right facet arthropathy. The central canal kukdzlwr-fs-gjxpzixh narrowed. Severe bilateral foraminal stenosis. C4-C5: Moderate loss of disc height and disc desiccation. There is diffuse posterior disc bulge and disc protrusion with disc osteophyte complex. Bilateral uncovertebral hypertrophy. Moderate facet arthropathy. The central canal severely narrowed. Severe bilateral foraminal stenosis. C5-C6: Moderate loss of disc height and disc desiccation. There is diffuse posterior disc bulge and disc osteophyte complex. Bilateral uncovertebral hypertrophy. Moderate facet arthropathy. The central canal qbnvcoeu-rk-jjiephzy narrowed. Cyhvjric-ue-padtxp bilateral foraminal stenosis. C6-C7: Mild loss of disc height and moderate disc desiccation. There is diffuse posterior disc bulge. Bilateral uncovertebral hypertrophy. Moderate facet arthropathy. The central canal mildly narrowed. Moderate bilateral foraminal stenosis. C7-T1: Normal appearance. IMPRESSION: 1. Suboptimal examination due to motion artifact. 2. Multilevel degenerative disc disease and facet arthropathy as described. 3. Severe central canal stenosis at C 4-C5 and C5-C6. 4. Multilevel foraminal stenosis as described, severe at C3-C4 bilaterally and C4-C5 bilaterally, boftlbxo-ot-sponrt at C5-C6 bilaterally, and moderate at C6-C7 bilaterally. Dictated by: Quiana Crawley M.D. on 01/01/2021 at 16:08 Approved by: Quiana Crawley M.D. on 01/01/2021 at 16:20
--- NOTE | 2021-01-01 11:06 | DI.RAD.S_ITS ---
PROCEDURE: XR SHOULDER RT MIN 2V INDICATIONS: shoulder pain TECHNIQUE: 3 views of the shoulder were acquired. COMPARISON: None. FINDINGS: Bones: Moderate acromioclavicular joint and glenohumeral joint osteoarthritic changes are seen. No acute shoulder fractures or dislocations. No suspicious bony lesions. Visualized ribs appear intact. Soft tissues: No suspicious soft tissue calcifications. IMPRESSION: No acute shoulder fracture or dislocation. Moderate shoulder joint osteoarthritis. Dictated by: Deon England M.D. on 01/01/2021 at 11:54 Approved by: Deon England M.D. on 01/01/2021 at 11:55
[2021-01-01 11:44] VITALS: BP 130/63; PULSE 53; RESP 15; TEMP 36.4; O2SAT 100
[2021-01-01] MEDS: KETOROLAC 30 MG/ML VIAL IV (11:51)
--- NOTE | 2021-01-01 14:35 | CM.DANOTE ---
DCP Brief Assessment Note Patient is a 55 year old male who was admitted on 12/31/20 for Pain in Right Shoulder. Pt has [employer] INSURANCE for insurance and his PCP is not listed. EMR was reviewed. Per MD, pt with a hx of anxiety and smoking and ruling out TIA and to have stress test today and then likely home pending results. Per RN, no concerns at this time although some pain management issues with his shoulder. Due to triage needs and no current needs, no bedside assessment done at this time. Plan: SW to follow after stress test and if pt remains in the hospital for any discharge planning needs. BYRON Bailey
--- NOTE | 2021-01-01 14:41 | PC.NURSE ---
1440- Pt off unit to MRI, via w/c, accompanied by [employer] master automotive technician.
[2021-01-01 15:59] VITALS: BP 135/96; PULSE 60; RESP 19; TEMP 36.6; O2SAT 98
--- NOTE | 2021-01-01 17:13 | PC.NURSE ---
Discharge note: Patient left with all belongings on foot with no difficulties to private vehicle with spouse. Education and discharge instructions given, acknowledged, and signed.
--- NOTE | 2021-01-01 17:15 | PM.DS.1 ---
History of Present Illness History of Present Illness Date Patient Seen: 01/01/21 Chief complaint: PAIN IN RIGHT SHOULDER Narrative: Vimal Urena is a 55 year old male with a past medical history of anxiety, current smoker who initially presented to the walk-in clinic for right shoulder pain that started 2 days ago. Patient states that he woke up after a nap with severe right shoulder pain. The pain is located just under his scapula inferiorly. He initially tried massage, but this did not help, and he later tried a Vicodin which did help but lasted for only a few hours before the pain returned. At some point overnight, he started developing some tingling in his distal fingertips only. When the pain is severe he also felt slightly nauseous. He also feels as though the pain radiates from his scapula to his neck and right upper arm. He denies any chest pain, shortness of breath, abdominal pain, palpitations, dyspnea on exertion. He denies any recent fever, chills, cough. Patient has been living in [place] taking care of his elderly parents, has been in [place] with his (lives here) for about a week. He smokes between 12- ppd and uses marijuana daily. Also has about 4 beers per day. Does get occasional sweats when he doesn't drink, no prior admissions for EtOH withdrawal or intubations. In the emergency room, the patient's vital signs were unremarkable. Initial laboratory evaluation revealed a macrocytosis with an MCV of 105 but a normal hemoglobin. Coagulation studies were unremarkable. Chemistries were also unremarkable. Troponin was negative x2. CRP was negative. COVID-19 testing was negative. Lipase was within normal limits at 68. Chest x-ray was unremarkable. EKG showed nonspecific ST segment changes in lead III in one EKG. ER provider discussed with cardiology whom recommended stress testing, HEART score between 3 and 4 depending on interpretation of his clinical history. Patient was admitted for further evaluation of R shoulder pain. Discharge Providers Provider Date of admission: 12/31/20 12:18 Discharge Date: 01/01/21 Primary care physician: Doctor Ata MD Discharge provider: Melinda Manzo MD Summary Hospital Course Discharge Diagnosis: 1. Multilevel cervical spine bilateral foraminal stenosis, cause for shoulder pain 2. Nicotine dependence 3. Anxiety Hospital Course: Patient was admitted to the hospital for severe shoulder pain. He received multiple doses of Dilaudid and Toradol with minimal relief. The patient had an EKG which was unremarkable. Given the patient's persistent pain he had x-rays of the shoulder which showed some arthritis but no significant bony abnormalities. The patient then underwent MRI of the cervical spine which confirmed the following uboptimal examination due to motion artifact. 2. Multilevel degenerative disc disease and facet arthropathy as described. 3. Severe central canal stenosis at C 4-C5 and C5-C6. 4. Multilevel foraminal stenosis as described, severe at C3-C4 bilaterally and C4-C5 bilaterally, fthamipq-kf-culzln at C5-C6 bilaterally, and moderate at C6-C7 bilaterally. Patient had a cardiac echo which showed no wall motion abnormalities. LV function was normal. The patient's ejection fraction was 60 65%. His stress test was aborted. Patient's case was discussed with Dr. Christianson. He recommended starting him on gabapentin, suggested epidural steroid injection. The patient was deemed appropriate for discharge and discharged home. He will be referred to Dr. Cameron as an outpatient for an epidural steroid injection, he is also referred to Dr. Christianson for evaluation of surgical treatment of his severe central canal stenosis. Status at Discharge Cognitive/behavioral status at discharge: oriented Functional status at discharge: independent ambulation Overall status at discharge: patient is back to baseline Time Spent with Patient Time spent: Less than 30 minutes Exam Vital Signs (past 8 hours): - 01/01/21 11:44 01/01/21 15:59 Temperature 97.6 F 97.8 F Pulse Rate 53 L 60 Respiratory Rate 15 19 Blood Pressure 130/63 135/96 H Pulse Oximetry 100 98 Oxygen Delivery Method Room Air Oxygen Flow Rate 0 Narrative Exam Narrative: Uncomfortable ill-appearing male lying in bed Lungs: Clear to auscultation Cardiac exam: Regular rate and rhythm normal S1-S2 Abdomen: Soft nontender Extremities: Mild tenderness to palpation along the biceps tendon, no pain on internal external rotation of the shoulder. No palpable pain along the shoulder Objective Labs Result Diagrams: 01/01/21 04:25 01/01/21 04:25 Labs: Laboratory Results - last 24 hr 12/31/20 12/31/20 12/31/20 16:44 16:44 16:44 WBC RBC Hgb Hct MCV MCH MCHC RDW Plt Count Neut % (Auto) Lymph % (Auto) [place] % (Auto) Eos % (Auto) Baso % (Auto) Neut # (Auto) Lymph # (Auto) [place] # (Auto) Eos # (Auto) Baso # (Auto) Sodium Potassium Chloride Carbon Dioxide BUN Creatinine Estimated GFR BUN/Creatinine Ratio Glucose Calcium Magnesium Total Bilirubin Conjugated Bilirubin Unconjugated Bilirubin AST ALT Alkaline Phosphatase Troponin I < 0.012 Total Protein Albumin Globulin Albumin/Globulin Ratio Triglycerides 84 Cholesterol 239 H LDL Cholesterol, Calc 124 H HDL Cholesterol 98 H TSH 6.03 H Free T4 1.32 01/01/21 01/01/21 04:25 04:25 WBC 6.0 RBC 4.50 Hgb 15.7 Hct 47.1 MCV 104.6 H MCH 34.9 H MCHC 33.4 RDW 12.2 Plt Count 207 Neut % (Auto) 58.9 Lymph % (Auto) 28.8 [place] % (Auto) 10.8 Eos % (Auto) 1.1 L Baso % (Auto) 0.4 Neut # (Auto) 3600 Lymph # (Auto) 1700 [place] # (Auto) 700 Eos # (Auto) 100 Baso # (Auto) 0 Sodium 135 L Potassium 4.4 Chloride 102 Carbon Dioxide 31 BUN 12 Creatinine 0.60 L Estimated GFR > 60.0 BUN/Creatinine Ratio 20.0 Glucose 105 H Calcium 9.1 Magnesium 2.1 Total Bilirubin 0.6 Conjugated Bilirubin 0.0 Unconjugated Bilirubin 0.7 AST 24 ALT 13 Alkaline Phosphatase 46 Troponin I Total Protein 6.7 Albumin 4.1 Globulin 2.6 Albumin/Globulin Ratio 1.6 Triglycerides Cholesterol LDL Cholesterol, Calc HDL Cholesterol TSH Free T4 PFSH Medical History Alcohol use Anxiety Tobacco use Social History Smoking Status: Current every day smoker alcohol intake: current Discharge Assessment & Plan Assessment and Plan Assessment: 1. Cervical canal foraminal stenosis 2. Nicotine dependence 3. Anxiety Plan of Treatment: Gabapentin 300 mg at night Follow-up with Dr. Cameron for possible epidural steroid injection Follow-up with Dr. Christianson for discussion regarding definitive surgical treatment Discharge Plan Discharge Plan Patient Disposition: Home Discharge orders & Medications Prescriptions: New gabapentin [Neurontin] 300 mg Capsule 300 mg PO BEDTIME Qty: 30 RF: 0 Continued citalopram 40 mg tablet 40 mg PO DAILY RF: 0 valacyclovir 1 gram tablet 1,000 mg PO DAILY RF: 0 B-complex with vitamin C Capsule 1 cap PO DAILY RF: 0 Follow up/Referrals: Yoandy Cameron DO [Physician] - (cervical canal stenosis, needs Epidural steroid injection ) Doctor Berumen MD [Primary Care Provider] - Ankur Christianson MD [Physician] - (cervical canal stenosis ) Discharge Health Status Multidrug resistant organism: No MDRO Diet/Activity/Treatments Diet: Diet as Tolerated Discharge Data Primary Care Provider: Doctor Ata Attending Provider: Gordon Owen VTE Deep Vein Thrombosis/Pulmonary Embolism Present on Admission: No
--- NOTE | 2021-01-01 19:58 | DI.NM.S_ITS ---
DATE OF SERVICE: 01/01/2021 PROCEDURE: Resting perfusion study only. INDICATION: Chest pain with history of tobacco abuse, alcohol abuse. RADIOPHARMACEUTICAL: 12.6 millicurie of technetium-99m Myoview IV was injected at rest. Please note, the stress test was canceled. This is a resting perfusion study only. GATED STUDY: Resting LV ejection fraction is 72 percent without any significant wall motion abnormalities. Resting end-diastolic volume 122 mL. RAW DATA: There is increased subdiaphragmatic activity. MYOCARDIAL PERFUSION: Resting perfusion study revealed a small size, mildly decreased perfusion of inferior wall, as well as basal inferoseptum. CONCLUSION: Abnormal resting perfusion study with mildly decreased perfusion of inferior wall and basal inferoseptum. Resting LV ejection fraction is 72 percent without any obvious wall motion abnormalities. There is increased subdiaphragmatic activity. The stress test was canceled. Findings of this resting study were conveyed to Dr. Owen. Vimal Urena - Pamela/castillo doc#: [id number]/job#: [id number] dd: 01/01/2021 17:56:00 dt: 01/01/2021 19:33:00 DICTATING MD/COPIES TO: Wilfredo Carreno MD COPIES MNE: KALEN;
--- NOTE | 2021-01-02 14:02 | CM.DPNOTE ---
Contacted by Dr. Manzo to help determine best way to get patient a PCP so that he can get a referral to the second part of his stress test. Upon reviewing demographics sheet I see he is Medicaid [place]. I called Jas BOYD to ask their advice as to how to best accomplish the above. The woman said that he should come into the office so that they can work with him to apply for [place] Medicaid. In the interim they can assist with sliding scale out of pocket costs to cover referral and testing. One trip to their office can accomplish it all and then the second stress test can be scheduled. Dr. Manzo informed. She will reach out to and explain the above. No further requests needed from me at this time.
--- NOTE | 2021-01-02 17:57 | P.EN_ITS ---
Event Note Date Patient Seen: 01/01/21 Event Note: The patient is a 55-year-old male who was admitted with significant shoulder pain. He underwent MRI of the neck which showed multilevel cervical pain. The patient had a resting stress study which revealed inferior wall abnormalities. He was discharged prior to the 2nd phase of the study being completed. The patient does not have a primary care provider in this will need to be arranged as an outpatient for the 2nd phase of the stress test. I spoke to the patient's today. They were referred to see Deisy. They will get a referral for an outpatient stress test from the PCP at [facility]. The patient continues to have significant pain. A prescription for short dose of prednisone was called in. In addition a referral to Dr. casi grider at [facility] was provided as well. Patient was instructed to follow-up for his stress test as soon as possible.
== END 2021-01-01 17:05 | disposition home or self-care (01) ==
LOC: ED 10:38 → AC 12:18
PROVIDERS: Admitting Provider Internal Medicine; Emergency Provider Emergency Medicine; Referring Provider Emergency Medicine; Visit Provider Internal Medicine
DX: M48.02 Spinal stenosis, cervical region (principal); F17.210 Nicotine dependence, cigarettes, uncomplicated; F41.9 Anxiety disorder, unspecified; Z20.822 Contact with and (suspected) exposure to COVID-19
CPT/HCPCS: 36415; 71045; 72040; 72141; 73030; 76705; 78451; 80048; 80053; 80061; 80076; 82550; 83036; 83690; 83735; 84439; 84443; 84484; 85025; 85610; 85651; 85730; 86140; 87635; 93005; 93306; 96374; 96375; 96376; 99283; 99284; C9803; G0378; A9502; J1170; J1885; J3360

== ENCOUNTER → 2022-12-16 08:18 | Outpatient (CLI) | payer OTHER, SELFPAY ==
[2020-12-31 14:02] VITALS: BMI 22.1
[2022-12-16 09:18] LABS: Add Manual Diff / Slide Review NO; Basophils Absolute Auto 0 /uL (0-100); Basophils Percent Auto 0.3 % (0-2); Eosinophils Absolute Auto 100 /uL (0-450); Eosinophils Percent Auto 1.8 % (2-4); Hematocrit 43.9 % (41-53); Hemoglobin 14.8 g/dL (13.5-17.5); Lymphocytes Absolute Auto 1700 /uL (1100-4500); Lymphocytes Percent Auto 31.8 % (25-40); Mean Corpuscular HGB Conc 33.7 % (30-36); Mean Corpuscular Hemoglobin 32.9 PG (26-34); Mean Corpuscular Volume 97.6 fL (80-100); Monocytes Absolute Auto 400 /uL (0-900); Monocytes Percent Auto 7.4 % (3-14); Neutrophils Absolute Auto 3100 /uL (1500-7000); Neutrophils Percent Auto 58.7 % (50-75); Platelet Count 204 X10^3/uL (150-400); Red Cell Distribution Width 12.9 % (11.6-14.8); White Blood Cell Count 5.2 X10^3/uL (4.5-11.0)
[2022-12-16 09:41] LABS: Alanine Aminotransferase 17 IU/L (<50); Albumin 4.3 g/dL (3.5-5.0); Albumin Globulin Ratio 1.5 (1.0-2.8); Alkaline Phosphatase 57 U/L (38-126); Aspartate Aminotransferase 22 IU/L (17-59); BUN Creatinine Ratio 18.6 (6-22); Bilirubin Total 0.7 mg/dL (0.2-1.3); Blood Urea Nitrogen 11 mg/dL (9-20); Calcium 8.8 mg/dL (8.4-10.2); Carbon Dioxide 26 mmol/L (22-32); Chloride 103 mmol/L (98-107); Cholesterol 234 mg/dL (140-199); Estimated Glomerular Filt Rate > 60 mL/min (>60); Globulin 2.8 g/dL (1.7-4.1); Glucose 97 mg/dL (70-100); HDL Cholesterol 104 mg/dL (40-60); HEMOLYSIS < 15 (0-50); LDL Cholesterol Calculated 104 mg/dL (<100); Potassium 4.3 mmol/L (3.4-5.1); Sodium 137 mmol/L (137-145); Total Protein 7.1 g/dL (6.3-8.2); Triglycerides 129 mg/dL (35-150)
[2022-12-16 09:56] LABS: Vitamin D 25 Hydroxy (D3) 37.3 ng/mL (30.0-100.0)
[2022-12-16 10:09] LABS: Prostate Specific Antigen 1.48 ng/mL (0.10-4.00)
[2022-12-16 10:14] LABS: TSH w/ Reflex to FT4 1.61 uIU/mL (0.47-4.68)
== END ==
PROVIDERS: Referring Provider Family Medicine; Visit Provider Family Medicine
DX: Z13.0 Encounter for screening for diseases of the blood and blood-forming organs and certain disorders involving the immune mechanism (principal); F10.20 Alcohol dependence, uncomplicated; Z13.29 Encounter for screening for other suspected endocrine disorder; R39.12 Poor urinary stream; F17.220 Nicotine dependence, chewing tobacco, uncomplicated; Z82.49 Family history of ischemic heart disease and other diseases of the circulatory system; L40.9 Psoriasis, unspecified; E55.9 Vitamin D deficiency, unspecified
CPT/HCPCS: 36415; 80053; 80061; 82306; 84153; 84443; 85025